=== PATIENT | female | born 1990 | race Caucasian/White ===

== ENCOUNTER 2022-02-11 13:24 | Inpatient (IN) | payer SELFPAY ==
[~2022-02-11] VITALS: Ht 144.8 cm; Wt 78.5 kg
[2022-02-11 13:26] VITALS: BP 120/95
[2022-02-11] MEDS ORDERED: ALBUTEROL 0.083% 2.5 MG/3 ML NEBU INH ONE ×2 (13:30→14:20)
[2022-02-11] MEDS ORDERED: ALBUTEROL SULFATE/IPRATROPIU 3 ML SOL IH ONE ×2 (13:30→14:20)
[2022-02-11] MEDS ORDERED: predniSONE 20 MG TAB PO ONE (13:30)
--- NOTE | 2022-02-11 13:30 | NUR ---
PATIENT BROUGHT IN BY STRETCHER BY [facility] DUE TO SHORTNES OF BREATH, PATIENT WAS GIVEN 2 NEBULIZER TREATMENTS
[2022-02-11] MEDS ORDERED: PRED20TA5 PO ×2 (13:47→13:48)
[2022-02-11] MEDS ORDERED: ALBU0.0912 INH ×2 (13:47→13:48)
[2022-02-11] MEDS ORDERED: MAG SULF 2000 MG/WATER PREMIX 50 ML IV ONE (15:50)
[2022-02-11 16:09] LABS: BASOPHILS # (AUTO) 0.1 K/uL (0.00-0.22); BASOPHILS % (AUTO) 0.4 % (0.0-2.0); EOSINOPHILS # (AUTO) 0.5 K/uL (0-0.4); EOSINOPHILS % (AUTO) 3.5 % (0.0-4.0); HEMATOCRIT 43.1 % (36-48); HEMOGLOBIN 14.4 g/dL (12.0-16.0); LYMPHOCYTES # (AUTO) 0.9 K/uL (2.5-16.5); LYMPHOCYTES % (AUTO) 5.6 % (20.5-51.1); MEAN CORPUSCULAR HEMOGLOBIN 30 pg (27-31); MEAN CORPUSCULAR HGB CONC 34 g/dL (33-37); MONOCYTES # (AUTO) 0.6 K/uL (0.8-1.0); MONOCYTES % (AUTO) 4.1 % (1.7-9.3); NEUTROPHILS # (AUTO) 13.6 K/uL (1.8-7.7); NEUTROPHILS % (AUTO) 86.4 % (42.2-75.2); PLATELET COUNT (AUTO) 311 K/uL (140-450); RED BLOOD CELL COUNT(AUTO) 4.85 MIL/uL (4.20-5.40); RED CELL DISTRIBUTION WIDTH 13.7 % (11.6-13.7); WHITE BLOOD COUNT (AUTO) 15.8 K/uL (4.8-10.8)
[2022-02-11] MEDS ORDERED: ALBUTEROL SULFATE/IPRATROPIU 3 ML SOL IH PRN (16:20)
[2022-02-11 16:27] LABS: ALBUMIN 3.6 g/dL (3.4-5.0); ANION GAP 15.6 (8-16); CARBON DIOXIDE 25.4 mmol/L (21-32); CREATININE 0.8 mg/dL (0.6-1.3); TOTAL BILIRUBIN 0.3 mg/dL (0.0-1.0)
[2022-02-11] MEDS ORDERED: POTASSIUM CHLORIDE 10 MEQ TABER PO ONE (16:40)
[2022-02-11] MEDS ORDERED: methylPREDNISolone SS 125 MG/2 ML VIAL IVP SCH ×2 (16:45)
--- NOTE | 2022-02-11 17:35 | NUR ---
PATIENT ON A GURNEY PUSH BY 2 RN FROM ER . PATIENT ALERT AND ORIENTED ABLE TO RESPONDS VERBALLY. KINDRA PALUMBO GAVE BED SIDE REPORT. PATIENT ABLE TO AMBULATE FROM GURNEY TO BED. NOTED WITH RAPID BREATH. AND WHEEZING. O2 SAT AT 88 AT ROOM AIR. 91- TO 94% AT 3L/MIN VIA NASAL CANULA. MAKE PATIENT SITUATED. AND ON TELE BOX. CALL LIGHT WITH IN EASY REACH.
[2022-02-11 18:09] VITALS: BP 118/76
[2022-02-11] MEDS ORDERED: ALBUTEROL SULFATE/IPRATROPIU 3 ML SOL IH SCH (19:00)
--- NOTE | 2022-02-11 19:02 | NUR ---
PATIENT ALERT HAVING BREATHING TREATMENT FROM RT. TOLERATED WELL.
--- NOTE | 2022-02-11 19:21 | NUR ---
PATIENT ALERT HAVING BREATHING TREATMENT. GAVE REPORT TO DOCUMENT MANAGEMENT SPECIALIST NURSE FOR CONTINUITY OF CARE.
--- NOTE | 2022-02-11 19:41 | NUR ---
patient very short of breath. needed 2 duoneb hhntxs. sats 89% on 3lnc. increased fio2 to 4lnc. small improvement post hhntx. rn is aware
--- NOTE | 2022-02-11 20:00 | NUR ---
PT REPORT RECEIVED FROM DAY SHIFT. CARE TAKEN OVER. UPON ASSESSMENT, PT SITTING UP IN BED WITH RESPIRATORY TX IN PROGRESS, TACHYPNEA RATE 28. PT WITH INSP AND EXP WHEEZING. DENIES PAIN. WILL CONTINUE TO MONITOR.
[2022-02-11 20:18] VITALS: BP 102/69
[2022-02-11] MEDS ORDERED: LEVALBUTEROL 1.25 MG/0.5 ML NEBU INH ONE ×2 (21:45→23:07)
--- NOTE | 2022-02-11 21:48 | NUR ---
DOCTOR CHANGED HHNTX MEDICATION TO XOPENEX 1.25MG Q6 AND PRN
[2022-02-11] MEDS ORDERED: BENZOCAINE/MENTHOL 1 LOZ MM PRN (21:50)
[2022-02-11] MEDS ORDERED: DOCUSATE SODIUM 100 MG GELCAP PO PRN (22:00)
[2022-02-11] MEDS ORDERED: ONDANSETRON 4 MG/2 ML VIAL IM/IVP PRN (22:00)
[2022-02-11] MEDS ORDERED: guaiFENesin DM 200/20 MG-10 ML 10 ML UDC PO PRN (22:00)
[2022-02-11] MEDS ORDERED: POTASSIUM CHLORIDE 10 MEQ TABER PO PRN (22:00)
[2022-02-11] MEDS ORDERED: HYDROcodone/APAP 7.5/325 MG 1 TAB PO PRN (22:00)
[2022-02-11] MEDS ORDERED: ACETAMINOPHEN 325 MG TAB PO PRN (22:00)
[2022-02-11] MEDS ORDERED: ZOLPIDEM 5 MG TAB PO PRN (22:00)
[2022-02-11] MEDS: LORATADINE 10 MG TAB PO SCH (22:22)
[2022-02-11] MEDS: FAMOTIDINE 20 MG TAB PO SCH (22:23)
[2022-02-11] MEDS: LORazepam 0.5 MG TAB PO PRN (22:23)
[2022-02-11 22:47] LABS: AMYLASE 64 U/L (25-115); CHOL/HDL RATIO 4.1 (1-4.5); FREE T4 (FREE THYROXINE) 1.14 ng/dL (0.76-1.46); HDL CHOLESTEROL 44 mg/dL (40-60); LDL (CALC) 126 mg/dL (60-100); LIPASE 68 U/L (73-393); MAGNESIUM 1.5 mg/dL (1.8-2.4); PHOSPHORUS 2.9 mg/dL (2.5-4.9); THYROID STIMULATING HORMONE 0.18 uIU/mL (0.34-3.74); TRIGLYCERIDES 57 mg/dL (30-150)
[2022-02-11] MEDS: NACL 0.9% 1,000 ML IV SCH (22:54)
[2022-02-11 23:11] LABS: PROTHROMBIN TIME 10.5 secs (10.8-13.4)
--- NOTE | 2022-02-12 | NUR ---
ROUNDING ON PT. IVF INITIATED AT 2300. VITALS STABLE AT THIS TIME, PT PULLED OUT IV. EXPLAINED TO PT NEED FOR IV FOR IVF AND MEDS. PT REFUSED TO HAVE IV ACCESS AT THIS TIME. STATED SHE WANTS TO SLEEP AND WILL LET IV ACCESS ATTEMPT LATER IN SHIFT. PT IS DRINKING H20, THUS FAR THIS SHIFT APPROX 1.5LITERS ICE WATER. AND IS GETTING UP TO RESTROOM TO VOID. REMAINS ON NASAL CANNULA AND SATURATION IS 99%. WILL CONTINUE TO MONITOR.
[2022-02-12 00:26] VITALS: BP 101/61
[2022-02-12] MEDS ORDERED: LEVALBUTEROL 1.25 MG/0.5 ML NEBU INH ONE ×4 (01:10→06:00)
[2022-02-12] MEDS ORDERED: LEVALBUTEROL 1.25 MG/0.5 ML NEBU INH PRN (01:15)
--- NOTE | 2022-02-12 02:00 | NUR ---
PT SLEEPING, NO APPARENT DISTRESS. O2 SAT 99%. WILL CONTINUE TO MONITOR.
[2022-02-12 04:00] VITALS: BP 123/71
[2022-02-12] MEDS: methylPREDNISolone SS 125 MG/2 ML VIAL IVP SCH ×2 (04:21)
--- NOTE | 2022-02-12 04:30 | NUR ---
pt awake. c/o SMITH 02/20. Tylenol given per MD order. New IV started to left FA 20G. Rt AC IV pt pulled out. IVF restarted and ivp solumedrol dose administered per order. Pt resp rate 26, labored, using accessory muscles. HR 129. Pt received resp tx, and encouraged to deep breathe during tx. Pt very agitated and crying during this time. Trouble sleeping. Sleep medication given per order. Pt now laying down with eyes closed. lights out. Will continue to monitor.
[2022-02-12] MEDS ORDERED: LEVALBUTEROL 1.25 MG/0.5 ML NEBU INH SCH (06:00)
[2022-02-12 06:21] LABS: APPEARANCE,URINE CLEAR (CLEAR); BILIRUBIN,URINE NEGATIVE (NEGATIVE); BLOOD, URINE NEGATIVE (NEGATIVE); COLOR,URINE YELLOW (YELLOW); LEUKOCYTE ESTERASE ,URINE NEGATIVE (NEGATIVE); NITRITE, URINE NEGATIVE (NEGATIVE); UGLUCOSE 2+ (NEGATIVE)
[2022-02-12 06:27] LABS: BASOPHILS % (AUTO) 0.1 % (0.0-2.0); EOSINOPHILS % (AUTO) 0.1 % (0.0-4.0); HEMOGLOBIN 13.7 g/dL (12.0-16.0); LYMPHOCYTES # (AUTO) 0.7 K/uL (2.5-16.5); LYMPHOCYTES % (AUTO) 7.4 % (20.5-51.1); MEAN CORPUSCULAR HEMOGLOBIN 30 pg (27-31); MEAN CORPUSCULAR HGB CONC 34 g/dL (33-37); MEAN CORPUSCULAR VOLUME 88.6 fL (80-94); MONOCYTES # (AUTO) 0.6 K/uL (0.8-1.0); MONOCYTES % (AUTO) 6.4 % (1.7-9.3); NEUTROPHILS # (AUTO) 8.2 K/uL (1.8-7.7); PLATELET COUNT (AUTO) 297 K/uL (140-450); RED BLOOD CELL COUNT(AUTO) 4.51 MIL/uL (4.20-5.40); RED CELL DISTRIBUTION WIDTH 13.3 % (11.6-13.7); WHITE BLOOD COUNT (AUTO) 9.6 K/uL (4.8-10.8)
--- NOTE | 2022-02-12 06:30 | NUR ---
pt sleeping. No distress. Call light within reach. Spo2 95%, HR 96. pt self turns. Will continue to monitor. Will endorse care to dayshift RN.
[2022-02-12 06:35] LABS: RBC,URINE NONE SEEN /HPF (0-5); WBC,URINE 0-5 /HPF (0-5)
[2022-02-12 06:36] LABS: BARBITURATE, URINE NEGATIVE ng/ml (NEG <=200); BENZODIAZEPINE, URINE NEGATIVE ng/mL (NEG <=200); CANNABINOID, URINE POSITIVE ng/mL (NEG <=50); COCAINE, URINE NEGATIVE ng/mL (NEG <=300); OPIATE, URINE NEGATIVE ng/mL (NEG <=2000); PHENCYCLIDINE SCREEN,URINE NEGATIVE ng/mL (NEG <=25)
[2022-02-12 06:52] LABS: ANION GAP 13.7 (8-16); CARBON DIOXIDE 26.3 mmol/L (21-32); CREATININE 0.6 mg/dL (0.6-1.3)
--- NOTE | 2022-02-12 07:14 | NUR ---
RESIDENT ASLEEP. RECEIVED REPORT FROM ACRYLIC FABRICATOR NURSE FOR CONTINUITY OF CARE.
[2022-02-12 08:00] VITALS: BP 127/90
[2022-02-12] MEDS: LORATADINE 10 MG TAB PO SCH (08:32)
[2022-02-12] MEDS: FAMOTIDINE 20 MG TAB PO SCH (08:33)
[2022-02-12] MEDS: PANTOPRAZOLE 40 MG TABEC PO SCH (08:33)
[2022-02-12] MEDS: guaiFENesin DM 200/20 MG-10 ML 10 ML UDC PO PRN ×2 (08:36→18:54)
--- NOTE | 2022-02-12 08:37 | NUR ---
GAVE ALL ORAL MEDICATION AND ROBITUSSIN FOR COMPLAIN OF COUGHING TOLERATED WELL.
[2022-02-12] MEDS: methylPREDNISolone SS 40 MG/ML VIAL IVP SCH ×2 (09:32→20:25)
--- NOTE | 2022-02-12 09:38 | NUR ---
PATIENT HAS BEEN SCREENED AND CATEGORIZED LOW NUTRITION RISK. PATIENT WILL BE SEEN WITHIN 7 DAYS OF ADMISSION. 02/18/[address]
[2022-02-12] MEDS: NACL 0.9% 1,000 ML IV SCH ×2 (10:51→23:00)
--- NOTE | 2022-02-12 11:30 | NUR ---
PATIENT AWAKE NO DISTRESS NOTED. IV INFUSING AT 80CC/HOUR TOLERATED WELL. ON O2 AT 3L/MIN VIA NASAL CANULA SATURATION AT 93 % STILL NOTED WITH WHEEZING.
[2022-02-12 12:00] VITALS: BP 112/66
[2022-02-12] MEDS: LEVALBUTEROL 1.25 MG/0.5 ML NEBU INH SCH ×2 (13:17→19:41)
--- NOTE | 2022-02-12 13:30 | NUR ---
PATIENT USE BED SIDE COMMODE NOTED WITH SCREAMING WHEN PATIENT CAN'T OPEN THE PACKET OF WIPES. ASSISTED TO OPEN IT. PATIENT GET EASILY AGITATED OR SCREAM WHEN FRUSTRATED.
--- NOTE | 2022-02-12 15:08 | NUR ---
PATIENT ON BED ASLEEP WITH CALL LIGHT WITH EASY REACH. O2 SAT AT 95% AT 3L/MIN. ALL SAFETY MEASURE IN PLACE.
[2022-02-12 16:00] VITALS: BP 107/72
--- NOTE | 2022-02-12 17:05 | NUR ---
Patient on bed resting no discomfort noted. On o2 at 3l/min via nasal canula. All safety measure in place. No abnormal behavior noted at this time.
--- NOTE | 2022-02-12 18:40 | NUR ---
PATIENT ALERT ORIENTED NO DISTRESS NOTED. EATING HER DINNER. CALL LIGHT WITH IN EASY REACH.
--- NOTE | 2022-02-12 18:55 | NUR ---
Patient coughing medicated as order.
--- NOTE | 2022-02-12 19:17 | NUR ---
PATIENT AWAKE ON STABLE CONDITION. GAVE REPORT TO RN SECURITY NURSE FOR CONTINUITY OF CARE.
[2022-02-12 20:00] VITALS: BP 105/71
--- NOTE | 2022-02-12 20:00 | NUR ---
GET REPORT FROM MORNING NURSE, PATIENT IS SITTING ON BED, VITAL SING IS WITHIN THE NORMAL RANGE, PATIENT IS STARED COUGHING, MEDICATION PROVIDED DR ORDER, PATIENT IS COMPLAINING CHEST TIGHTNESS , MEDICATED PATIENT , ALL OTHER DUE MEDS ARE GIVEN DR ORDER, CALL LIGHT WITHIN THE REACH , WILL CONTINUE TO MONITOR.
[2022-02-12] MEDS: LORazepam 0.5 MG TAB PO PRN (21:48)
[2022-02-13] VITALS: BP 99/66
--- NOTE | 2022-02-13 00:20 | NUR ---
PATIENT IS RESTING ON BED , NO ANY COMPLAIN OF PAIN OR SOB AT THIS TIME , VITALS ARE WITHIN THE NORMAL RANGE.CALL LIGHT IS WITHIN THE REACH WILL CONTINUE TO MONITOR.
[2022-02-13] MEDS: LEVALBUTEROL 1.25 MG/0.5 ML NEBU INH SCH ×3 (01:27→13:09)
--- NOTE | 2022-02-13 02:00 | NUR ---
PATIENT IS SITTING ON BED, PATIENT REQUESTED TO CHANGE HER, REQUEST FULFILL , VITALS ARE WITHIN THE NORMAL RANGE , RT GAVE RESPIRATORY TREATMENT DONE, CALL LIGHT WITHIN THE REACH , WILL CONTINUE TO MONITOR.
[2022-02-13 04:00] VITALS: BP 95/64
--- NOTE | 2022-02-13 04:00 | NUR ---
PATIENT IS LYING ON BED, NO ANY COMPLAIN OF PAIN OR SOB AT THIS TIME , ALL DUE MEDS ARE GIVEN DR ORDER, VITAL SIGN ARE WITHIN THE NORMAL RANGE, CALL LIGHT IS WITHIN THE REACH, WILL CONTINUE TO MONITOR.
--- NOTE | 2022-02-13 06:05 | NUR ---
PATIENT IS SITTING ON BED, NO ANY COMPLAIN OF PAIN OR SOB AT THIS TIME, CALL LIGHT IS WITHIN THE REACH ,WILL CONTINUE TO MONITOR.
[2022-02-13 06:27] LABS: BASOPHILS % (AUTO) 0.1 % (0.0-2.0); EOSINOPHILS % (AUTO) 0.1 % (0.0-4.0); HEMATOCRIT 39.5 % (36-48); LYMPHOCYTES # (AUTO) 1.8 K/uL (2.5-16.5); LYMPHOCYTES % (AUTO) 13.7 % (20.5-51.1); MEAN CORPUSCULAR HEMOGLOBIN 30 pg (27-31); MEAN CORPUSCULAR HGB CONC 33 g/dL (33-37); MEAN CORPUSCULAR VOLUME 89.8 fL (80-94); MONOCYTES % (AUTO) 7.6 % (1.7-9.3); NEUTROPHILS # (AUTO) 10.6 K/uL (1.8-7.7); NEUTROPHILS % (AUTO) 78.5 % (42.2-75.2); PLATELET COUNT (AUTO) 286 K/uL (140-450); RED BLOOD CELL COUNT(AUTO) 4.39 MIL/uL (4.20-5.40); RED CELL DISTRIBUTION WIDTH 13.6 % (11.6-13.7); WHITE BLOOD COUNT (AUTO) 13.5 K/uL (4.8-10.8)
[2022-02-13 07:07] LABS: ANION GAP 10.3 (8-16); CARBON DIOXIDE 28.1 mmol/L (21-32); CREATININE 0.5 mg/dL (0.6-1.3); POTASSIUM 4.4 mmol/L (3.5-5.1)
--- NOTE | 2022-02-13 07:10 | NUR ---
RECEIVED ENDORSEMENT FROM CAMP ADVISOR NURSE FOR CONTINUITY OF CARE. PT. AWAKE, LYING ON HER BED, A&OX4. PT IS AMBULATORY. ON 3L 02 NC. BREATHING UNLABORED. PT IS CONTINENT, WITH BEDSIDE COMMODE. SKIN IS INTACT. IV ON LEFT FA 20G, WITH NS AT 80. WILL CONTINUE TO MONITOR.
[2022-02-13 08:00] VITALS: BP 111/73
[2022-02-13 08:07] LABS: T4 (THYROXINE) 10.5 ug/dL (4.5-12.0)
[2022-02-13] MEDS: PANTOPRAZOLE 40 MG TABEC PO SCH (08:30)
[2022-02-13] MEDS: LORATADINE 10 MG TAB PO SCH (08:30)
[2022-02-13] MEDS: methylPREDNISolone SS 40 MG/ML VIAL IVP SCH (08:31)
[2022-02-13] MEDS: FAMOTIDINE 20 MG TAB PO SCH (08:31)
--- NOTE | 2022-02-13 08:40 | NUR ---
DUE MEDS GIVEN. PT 02SAT WAS 86% ON RA, PUT ON NC AT 2L O2. 02SAT WENT UP TO 95%. WILL CONTINUE TO MONITOR.
[2022-02-13] MEDS: NACL 0.9% 1,000 ML IV SCH (10:31)
--- NOTE | 2022-02-13 11:00 | NUR ---
PT LYING ON BED, DENIES PAIN, BREATHING UNLABORED. WILL CONTINUE TO MONITOR.
[2022-02-13 12:00] VITALS: BP 119/74
[2022-02-13] MEDS ORDERED: PRED20TA5 PO (12:13)
[2022-02-13] MEDS ORDERED: ALBU0.0912 INH (12:13)
[2022-02-13] MEDS ORDERED: LORA10TA19 PO (12:14)
[2022-02-13 14:18] VITALS: BP 119/74
--- NOTE | 2022-02-13 15:00 | NUR ---
WENT SARAH WITH THE DISCHARGE PAPERS WITH THE PT, AND PT VERBALIZED UNDERSTANDING. PT REMOVED HER IV LINE WITHOUT NOTIFYING RN, AND BLEEDING CONTROLLED. ID BAND REMOVED. PT CHANGED INTO OWN CLOTHING. ITEMS RETRIEVED FROM SECURITY AND GIVEN TO PT BY SECURITY. PT AMBULATED OUT OF HOSPITAL BY SELF TO FRONT LOBBY WHERE EX IS WAITING TO DRIVE HER HOME. VS STABLE. NO RESPIRATORY DISTRESS NOTED. PT IS STABLE. PT DISCHARGED.
--- NOTE | 2022-02-14 10:24 | NUR ---
LATE ENTRY- IV MAGNESIUM DISCONTINUED AT 1807
== END 2022-02-13 15:36 | disposition home or self-care (01) | DRG 871 ==
LOC: MED 13:24 → MTU 16:26
PROVIDERS: ADMIT Family Medicine; ATTEND Family Medicine
DX: A41.9 Sepsis, unspecified organism (principal); J96.00 Acute respiratory failure, unspecified whether with hypoxia or hypercapnia; J45.901 Unspecified asthma with (acute) exacerbation; E83.42 Hypomagnesemia; E87.6 Hypokalemia; F12.90 Cannabis use, unspecified, uncomplicated; Z20.822 Contact with and (suspected) exposure to COVID-19; F17.210 Nicotine dependence, cigarettes, uncomplicated; Z59.00 Homelessness unspecified; Z79.899 Other long term (current) drug therapy
CPT/HCPCS: 36415; 71045; 80048; 80053; 80305; 81001; 82150; 83036; 83690; 83735; 83880; 84100; 84436; 84439; 84443; 84479; 84484; 85025; 85610; 85730; 87081; 94640; 96365; 99291; J2920; J2930; J3475; J7512; J7612; J7613

== ENCOUNTER 2022-04-30 03:40 | Inpatient (IN) | payer MEDICAID, OTHER ==
[~2022-04-30] VITALS: Ht 162.6 cm; Wt 77.1 kg
[~2022-04-30 03:40] MED LIST: ALBU0.0912 INH; LORA10TA19 PO; PRED20TA5 PO
[2022-04-30 03:48] VITALS: BP 116/78
[2022-04-30] MEDS ORDERED: ALBUTEROL SULFATE/IPRATROPIU 3 ML SOL IH ONE (03:50)
[2022-04-30] MEDS ORDERED: LEVALBUTEROL 0.63 MG/3 ML NEBU INH ONE (03:55)
[2022-04-30] MEDS ORDERED: IPRATROPIUM 0.02% 0.5 MG/2.5 ML NEBU INH ONE (03:55)
[2022-04-30] MEDS ORDERED: methylPREDNISolone SS 125 MG in WATER STERILE 2 ML IV ONE (05:00)
--- NOTE | 2022-04-30 05:15 | NUR ---
COVID/CHRISTY AND BLOOD SPECIMENS COLLECTED AND WALKED TO LAB
--- NOTE | 2022-04-30 05:35 | NUR ---
31 Y/O FEMALE BIBA, C/O SOB. PT WAS RECENTLY DISCHARGED FROM [facility] WHERE SHE WAS ADMITTED FOR 4 DAYS FOR ASTHMA EXACERBATION. PT STATES SHE DOES NOT HAVE ACCESS TO HER MEDS ASTHMA MEDICATIONS. A/OX4, GCS-15; AMBULATORY; TACHYCARDIC AND TACHYPNIC WITH AUDIBLE WHEEZES, PRODUCTIVE COUGH. HX: ASTHMA NKA MED: SYMBICORT AND ALBUTEROL
[2022-04-30 05:36] LABS: ANION GAP 11.6 (8-16); CARBON DIOXIDE 27.7 mmol/L (21-32); CREATININE 0.7 mg/dL (0.6-1.3); POTASSIUM 3.3 mmol/L (3.5-5.1)
[2022-04-30] MEDS ORDERED: BUDE1AER IH (05:40)
[2022-04-30] MEDS ORDERED: ALBU0.0912 INH (05:40)
[2022-04-30 05:51] LABS: BASOPHILS # (AUTO) 0.1 K/uL (0.00-0.22); BASOPHILS % (AUTO) 0.4 % (0.0-2.0); EOSINOPHILS # (AUTO) 0.7 K/uL (0-0.4); EOSINOPHILS % (AUTO) 3.9 % (0.0-4.0); HEMATOCRIT 44.6 % (36-48); LYMPHOCYTES # (AUTO) 3.7 K/uL (2.5-16.5); MEAN CORPUSCULAR HEMOGLOBIN 29 pg (27-31); MEAN CORPUSCULAR HGB CONC 34 g/dL (33-37); MEAN CORPUSCULAR VOLUME 86.9 fL (80-94); MONOCYTES # (AUTO) 2.3 K/uL (0.8-1.0); MONOCYTES % (AUTO) 12.5 % (1.7-9.3); NEUTROPHILS # (AUTO) 11.8 K/uL (1.8-7.7); NEUTROPHILS % (AUTO) 63.2 % (42.2-75.2); PLATELET COUNT (AUTO) 352 K/uL (140-450); RED BLOOD CELL COUNT(AUTO) 5.13 MIL/uL (4.20-5.40); RED CELL DISTRIBUTION WIDTH 13.3 % (11.6-13.7); WHITE BLOOD COUNT (AUTO) 18.6 K/uL (4.8-10.8)
--- NOTE | 2022-04-30 06:00 | NUR ---
Ayanna dai in [facility] - 04/30/22 at 1841 by PHSEP PT PROVIDED WITH DINNER. PT AWAKE AND EATING IN BED
[2022-04-30] MEDS ORDERED: methylPREDNISolone SS 125 MG/2 ML VIAL ONE (06:23)
--- NOTE | 2022-04-30 06:45 | NUR ---
PATIENT HAS BEEN SCREENED AND CATEGORIZED LOW NUTRITION RISK. PATIENT WILL BE SEEN WITHIN 7 DAYS OF ADMISSION. 05/07/22 CHASE CHILDS MS, RDN
--- NOTE | 2022-04-30 07:17 | NUR ---
Pt report given to ALTON CHRISTENSEN. Transfer of care at this time.
--- NOTE | 2022-04-30 07:30 | NUR ---
RECEIVED PT IN [facility] AOX4. DENIES PAIN OR DISCOMFORT. NSR ON MONITOR. ON 2L NC SATURATION 95%. STATES OXYGEN HAS HELPED SOB. ADMITTED TO TELE. PENDING TELE BED. NAD. SAFETY MAINTAINED.
--- NOTE | 2022-04-30 07:30 | NUR ---
PT SATURATION IS 98% ON 2L NASAL CANNULA. YOU CAN HEAR HER WHEEZES UPON ENTERING HER ROOM. CHEST CONGESTION AND DRY COUGH. PT STATES ITS HARD TO COUGH ANYTHING OUT.
--- NOTE | 2022-04-30 09:30 | NUR ---
PT RESTING IN [place] DENIES SURESH NOR DISCOMFORT. NSR ON MONITOR. BREATHING UNLABORED. ON 3L NC SATURATION 97%. PENDING TELE BED.
[2022-04-30] MEDS ORDERED: ALBUTEROL SULFATE/IPRATROPIU 3 ML SOL IH PRN ×2 (10:00→10:10)
[2022-04-30] MEDS ORDERED: DOCUSATE SODIUM 100 MG GELCAP PO PRN (10:05)
[2022-04-30] MEDS ORDERED: HYDROcodone/APAP 7.5/325 MG 1 TAB PO PRN (10:05)
[2022-04-30] MEDS ORDERED: ONDANSETRON 4 MG/2 ML VIAL IM/IVP PRN (10:05)
[2022-04-30] MEDS: NACL 0.9% 1,000 ML IV SCH (10:05)
[2022-04-30] MEDS ORDERED: guaiFENesin DM 200/20 MG-10 ML 10 ML UDC PO PRN (10:05)
[2022-04-30] MEDS ORDERED: ACETAMINOPHEN 325 MG TAB PO PRN (10:05)
[2022-04-30] MEDS ORDERED: POTASSIUM CHLORIDE 10 MEQ TABER PO PRN (10:05)
[2022-04-30] MEDS ORDERED: ZOLPIDEM 5 MG TAB PO PRN (10:05)
[2022-04-30 11:21] LABS: PROTHROMBIN TIME 10.7 secs (10.8-13.4)
[2022-04-30 11:53] LABS: AMYLASE 71 U/L (25-115); HDL CHOLESTEROL 48 mg/dL (40-60); MAGNESIUM 2.2 mg/dL (1.8-2.4)
[2022-04-30] MEDS: ALBUTEROL SULFATE/IPRATROPIU 3 ML SOL IH SCH ×2 (12:41→19:24)
[2022-04-30] MEDS: methylPREDNISolone SS 40 MG/ML VIAL IVP SCH ×2 (13:18→21:23)
--- NOTE | 2022-04-30 13:20 | NUR ---
PT ASLEEP IN [facility] NO S/S PAIN OR DISCOMFORT. BREATHING UNLABORED. NAD. SAFETY MAINTAINED.
[2022-04-30 14:01] LABS: PHOSPHORUS 3.7 mg/dL (2.5-4.9)
--- NOTE | 2022-04-30 15:16 | NUR ---
Followed up with lab regarding pending results. CLS unavailable and will be consulted in regards to pending labs.
[2022-04-30 15:55] LABS: CHOL/HDL RATIO 3.7 (1-4.5); LDL (CALC) 111 mg/dL (60-100); LIPASE 91 U/L (73-393); THYROID STIMULATING HORMONE 0.39 uIU/mL (0.34-3.74); TRIGLYCERIDES 103 mg/dL (30-150)
--- NOTE | 2022-04-30 16:00 | NUR ---
Ayanna dai in [facility] - 04/30/22 at 1842 by PHSEP PT PROVIDED WITH DINNER. PT AWAKE AND EATING IN BED
--- NOTE | 2022-04-30 16:29 | NUR ---
TROPONIN NOT YET IN SYSTEM, CALLED AND SPOKE TO CLS. LAB HAS RESULTED AND WILL BE PLACED IN COMPUTER
--- NOTE | 2022-04-30 16:40 | NUR ---
PT PROVIDED WITH BED ZAMORANO.
--- NOTE | 2022-04-30 17:50 | NUR ---
PT PROVIDED WITH DINNER. PT AWAKE AND EATING IN BED
--- NOTE | 2022-04-30 19:20 | NUR ---
REPORT GIVEN TO LEONEL DANG. ALL QUESTIONS ANSWERED. TRANSFER OF CARE AT THIS TIME
--- NOTE | 2022-04-30 19:24 | NUR ---
PT IS AWAKE AND ALERT. PT GIVEN WATER PER REQUEST. ALL NEEDS MET AT THIS TIME. BED LOCKED IN LOWEST POSITION, SIDE RAILS X2 FOR SAFETY.
--- NOTE | 2022-04-30 19:24 | NUR ---
Note malaika in ED - 04/30/22 at 1926 by PHSEP PT IS AWAKE AND ALERT. PT GIVEN WATER PER REQUEST. ALL NEEDS MET AT THIS TIME. BED LOCKED IN LOWEST POSITION, SIDE RAILS X2 FOR SAFETY.
--- NOTE | 2022-04-30 19:57 | NUR ---
Patient will be admitted to care of FA[facility]O. Admited to TELE. Will go to [id number]. Belongings list completed. Report to ALTON PORTILLO.
--- NOTE | 2022-04-30 20:00 | NUR ---
RECEIVED PT FROM ER NURSE,ALERT ORIENTED X4,ON 2 L NC. NO DISTRESS NOTED
--- NOTE | 2022-04-30 21:30 | NUR ---
SCHEDULED MEDS GIVEN,NO ADVERSE REACTIONS NOTED
--- NOTE | 2022-05-01 01:00 | NUR ---
PATIENT ASLEEP, BREATHING EVEN AND UNLABORED,NO DISTRESS NOTED
[2022-05-01] MEDS: NACL 0.9% 1,000 ML IV SCH (02:44)
[2022-05-01 04:00] VITALS: BP 140/81
--- NOTE | 2022-05-01 04:00 | NUR ---
PATIENT ASLEEP,BREATHING EVEN AND UNLABORED,NO COUGH OR SOB NOTED
[2022-05-01] MEDS: methylPREDNISolone SS 40 MG/ML VIAL IVP SCH ×2 (05:08→13:12)
--- NOTE | 2022-05-01 06:00 | NUR ---
PATIENT ASLEEP,BREATHING EVEN AND UNLABORED,NO DISTRESS NOTED
[2022-05-01 06:30] LABS: BASOPHILS % (AUTO) 0.1 % (0.0-2.0); EOSINOPHILS % (AUTO) 0.4 % (0.0-4.0); HEMOGLOBIN 14.1 g/dL (12.0-16.0); LYMPHOCYTES # (AUTO) 2.1 K/uL (2.5-16.5); MEAN CORPUSCULAR HEMOGLOBIN 29 pg (27-31); MEAN CORPUSCULAR HGB CONC 34 g/dL (33-37); MEAN CORPUSCULAR VOLUME 87.7 fL (80-94); MONOCYTES # (AUTO) 0.9 K/uL (0.8-1.0); MONOCYTES % (AUTO) 9.3 % (1.7-9.3); NEUTROPHILS # (AUTO) 6.5 K/uL (1.8-7.7); NEUTROPHILS % (AUTO) 68.2 % (42.2-75.2); PLATELET COUNT (AUTO) 324 K/uL (140-450); RED BLOOD CELL COUNT(AUTO) 4.78 MIL/uL (4.20-5.40); RED CELL DISTRIBUTION WIDTH 13.1 % (11.6-13.7); WHITE BLOOD COUNT (AUTO) 9.6 K/uL (4.8-10.8)
[2022-05-01 06:34] LABS: ANION GAP 10.5 (8-16); CARBON DIOXIDE 29.7 mmol/L (21-32); CREATININE 0.6 mg/dL (0.6-1.3); POTASSIUM 4.2 mmol/L (3.5-5.1)
[2022-05-01 07:06] LABS: T4 (THYROXINE) 8.7 ug/dL (4.5-12.0)
--- NOTE | 2022-05-01 07:30 | NUR ---
endorsed pt to am nurse for continuity of care. pt is stable
[2022-05-01] MEDS: ALBUTEROL SULFATE/IPRATROPIU 3 ML SOL IH SCH (07:39)
[2022-05-01 08:00] VITALS: BP 112/74
--- NOTE | 2022-05-01 08:49 | NUR ---
RECEIVE ENDORSEMENT FROM PM SHIFT WHILE PATIENT REST IN BED WITH PIV LAC 20G PATENT, NS INFUSING AT 60ML/HR. WILL CONTINUE TO MONITOR.
[2022-05-01] MEDS ORDERED: PANTOPRAZOLE 40 MG TABEC PO SCH (09:00)
[2022-05-01 11:10] LABS: APPEARANCE,URINE HAZY (CLEAR); BILIRUBIN,URINE NEGATIVE (NEGATIVE); BLOOD, URINE TRACE-I (NEGATIVE); COLOR,URINE YELLOW (YELLOW); LEUKOCYTE ESTERASE ,URINE NEGATIVE (NEGATIVE); NITRITE, URINE NEGATIVE (NEGATIVE); UGLUCOSE NEGATIVE (NEGATIVE)
[2022-05-01 11:21] LABS: BARBITURATE, URINE NEGATIVE ng/ml (NEG <=200); BENZODIAZEPINE, URINE NEGATIVE ng/mL (NEG <=200); COCAINE, URINE NEGATIVE ng/mL (NEG <=300); OPIATE, URINE NEGATIVE ng/mL (NEG <=2000); PHENCYCLIDINE SCREEN,URINE NEGATIVE ng/mL (NEG <=25)
[2022-05-01 11:23] LABS: CANNABINOID, URINE POSITIVE ng/mL (NEG <=50)
[2022-05-01 11:26] LABS: RBC,URINE 0-5 /HPF (0-5); WBC,URINE 0-5 /HPF (0-5)
[2022-05-01 12:00] VITALS: BP 116/77
--- NOTE | 2022-05-01 12:50 | NUR ---
PATIENT REMOVE HER TEL. MONITOR, DISCONNECT HER IV AND SEATING ON THE BED, WAITING TO GO HOME. PER PATIENT THAT DOCTOR DISCHARGE HER, AND SHE NEED "NOTHING" BUT JUST GO HOME.
--- NOTE | 2022-05-01 13:30 | NUR ---
DISCHARGE PATIENT W/ STABLE CONDITION, D/C CONSENT SIGNED, IV ACCESS AND ARM BAND REMOVE BEFORE PATIENT WALK OUT THE FACILITY W/ SIGNIFICANT OTHER. Addendum: 05/01/22 at 1448 by Trudy Ritchie RN DISCHARGE PATIENT W/ STABLE CONDITION, D/C CONSENT SIGNED, IV ACCESS AND ARM BAND REMOVE BEFORE PATIENT WALK OUT THE FACILITY. HOMELESS HELP PACKAGE AND SANDWICH GIVEN PRE DISCHARGE.
== END 2022-05-01 14:35 | disposition home or self-care (01) | DRG 133 ==
LOC: MED 03:40 → MTU 05:47
DX: J96.00 Acute respiratory failure, unspecified whether with hypoxia or hypercapnia (principal); J45.901 Unspecified asthma with (acute) exacerbation; E87.6 Hypokalemia; Z20.822 Contact with and (suspected) exposure to COVID-19; D72.829 Elevated white blood cell count, unspecified; T38.0X5A Adverse effect of glucocorticoids and synthetic analogues, initial encounter; Z91.14 Patient's other noncompliance with medication regimen; Y92.89 Other specified places as the place of occurrence of the external cause
CPT/HCPCS: 36415; 71045; 80048; 80305; 81001; 82150; 83036; 83690; 83735; 83880; 84100; 84436; 84439; 84443; 84479; 84484; 85025; 85610; 85730; 87081; 94640; 96374; 99291; J2920; J2930; J7614; J7644; Q0092

== ENCOUNTER 2023-05-18 21:46 | Emergency (ER) | payer MEDICAID ==
[~2023-05-18] VITALS: Ht 149.9 cm; Wt 79.8 kg
[~2023-05-18 21:46] MED LIST changes: +BUDE1AER IH; -LORA10TA19 PO; +PHENYLEPHRINE TP; +SHARK OIL TP
--- NOTE | 2023-05-18 21:47 | NUR ---
[employer] [place] FOR PRE-BOOK MEDICAL CLEARANCE, TAKEN TO [facility]
[2023-05-18 21:48] VITALS: BP 93/67; PULSE 101; RESP 16; TEMP 98.2; O2SAT 98
--- NOTE | 2023-05-18 22:37 | NUR ---
Patient being evaluated by physician at [facility]
[2023-05-18 22:51] VITALS: BP 93/67; PULSE 101; RESP 16; TEMP 98.2; O2SAT 98
--- NOTE | 2023-05-18 22:51 | NUR ---
Patient discharged with v/s stable. Written and verbal after care instructions given and explained. Patient verbalized understanding. Police with in custody. All questions addressed prior to discharge. Advised to follow up with PMD.
== END 2023-05-18 22:51 ==
LOC: MED 21:46
DX: S41.101A Unspecified open wound of right upper arm, initial encounter (principal); J45.909 Unspecified asthma, uncomplicated; Z79.899 Other long term (current) drug therapy; Z02.89 Encounter for other administrative examinations; X58.XXXA Exposure to other specified factors, initial encounter; Y93.89 Activity, other specified; Y92.89 Other specified places as the place of occurrence of the external cause; Y99.8 Other external cause status
CPT/HCPCS: 99283

== ENCOUNTER 2024-08-27 14:38 | Inpatient (IN) | payer MEDICAID, OTHER ==
[2024-08-27] VITALS (8 sets, daily range): BP systolic 142; BP diastolic 91; PULSE 101–131; RESP 17–25; TEMP 97.2; O2SAT 88–97
[~2024-08-27] VITALS: Ht 144.8 cm; Wt 73.9 kg
[2024-08-27] MEDS ORDERED: ALBUTEROL 0.083% 2.5 MG/3 ML NEBU INH ONE (15:04)
[2024-08-27] MEDS ORDERED: IPRATROPIUM 0.02% 0.5 MG/2.5 ML NEBU INH ONE (15:05)
[2024-08-27] MEDS: IPRATROPIUM 0.02% 0.5 MG/2.5 ML NEBU INH ONE ×3 (15:28→16:15)
[2024-08-27] MEDS: ALBUTEROL 0.083% 2.5 MG/3 ML NEBU INH ONE ×3 (15:29→16:15)
[2024-08-27] MEDS: DEXAMETHASONE 10 MG/ML VIAL PO ONE (15:48)
[2024-08-27] MEDS: MAG SULF 2000 MG/WATER PREMIX 50 ML IV ONE (17:02)
[2024-08-27 17:07] LABS: BASOPHILS # (AUTO) 0.2 K/uL (0.00-0.22); BASOPHILS % (AUTO) 1.5 % (0.0-2.0); EOSINOPHILS # (AUTO) 0.3 K/uL (0-0.4); EOSINOPHILS % (AUTO) 2.2 % (0.0-4.0); HEMATOCRIT 46.5 % (36-48); HEMOGLOBIN 15.6 g/dL (12.0-16.0); LYMPHOCYTES # (AUTO) 2.1 K/uL (2.5-16.5); LYMPHOCYTES % (AUTO) 16.4 % (20.5-51.1); MEAN CORPUSCULAR HEMOGLOBIN 30 pg (27-31); MEAN CORPUSCULAR HGB CONC 34 g/dL (33-37); MEAN CORPUSCULAR VOLUME 90.2 fL (80-94); MONOCYTES # (AUTO) 1.2 K/uL (0.8-1.0); MONOCYTES % (AUTO) 9.3 % (1.7-9.3); NEUTROPHILS % (AUTO) 70.6 % (42.2-75.2); PLATELET COUNT (AUTO) 324 K/uL (140-450); RED BLOOD CELL COUNT(AUTO) 5.15 MIL/uL (4.20-5.40); WHITE BLOOD COUNT (AUTO) 12.8 K/uL (4.8-10.8)
[2024-08-27 17:15] LABS: ANION GAP 16.6 (8-16); CALCIUM 9.6 mg/dL (8.5-10.1); CARBON DIOXIDE 24.5 mmol/L (21-32); CREATININE 0.9 mg/dL (0.6-1.3); POTASSIUM 3.1 mmol/L (3.5-5.1)
[2024-08-27] MEDS: POTASSIUM CHLORIDE 20% 40 MEQ/15 ML UDC PO ONE (17:41)
[2024-08-27] MEDS: ONDANSETRON 4 MG/2 ML VIAL IVP ONE (17:55)
[2024-08-27] MEDS ORDERED: IBUPROFEN 400 MG TAB PO PRN (18:50)
[2024-08-27 18:53] LABS: FLU A ANTIGEN negative (NEGATIVE); FLU B ANTIGEN NEGATIVE (NEGATIVE)
[2024-08-27] MEDS ORDERED: MAGNESIUM OXIDE 400 MG TAB PO PRN (19:00)
[2024-08-27] MEDS ORDERED: POTASSIUM CHLORIDE 10 MEQ TABER PO PRN (19:00)
[2024-08-27 19:37] LABS: LACTIC ACID 2.1 mmol/L (0.4-2.0)
[2024-08-27] MEDS: ALBUTEROL SULFATE/IPRATROPIU 3 ML SOL IH SCH (20:14)
[2024-08-27] MEDS: BUDESONIDE 0.5 MG/2 ML NEBU INH SCH (20:14)
[2024-08-27] MEDS: methylPREDNISolone SS 40 MG/ML VIAL IVP SCH (21:36)
[2024-08-27] MEDS: NACL 0.9% 500 ML IV ONE (22:10)
[2024-08-28] VITALS (12 sets, daily range): BP systolic 105–137; BP diastolic 70–87; PULSE 71–108; RESP 18–24; TEMP 96.6–97.6; O2SAT 91–100
[2024-08-28 06:55] LABS: BASOPHILS % (AUTO) 0.3 % (0.0-2.0); HEMATOCRIT 42.9 % (36-48); HEMOGLOBIN 14.4 g/dL (12.0-16.0); LYMPHOCYTES % (AUTO) 14.9 % (20.5-51.1); MEAN CORPUSCULAR HEMOGLOBIN 30 pg (27-31); MEAN CORPUSCULAR HGB CONC 34 g/dL (33-37); MEAN CORPUSCULAR VOLUME 89.9 fL (80-94); MONOCYTES # (AUTO) 0.4 K/uL (0.8-1.0); MONOCYTES % (AUTO) 6.6 % (1.7-9.3); NEUTROPHILS # (AUTO) 5.3 K/uL (1.8-7.7); NEUTROPHILS % (AUTO) 78.2 % (42.2-75.2); PLATELET COUNT (AUTO) 342 K/uL (140-450); RED BLOOD CELL COUNT(AUTO) 4.77 MIL/uL (4.20-5.40); RED CELL DISTRIBUTION WIDTH 12.9 % (11.6-13.7); WHITE BLOOD COUNT (AUTO) 6.7 K/uL (4.8-10.8)
[2024-08-28 07:18] LABS: ALBUMIN 3.5 g/dL (3.4-5.0); CALCIUM 8.8 mg/dL (8.5-10.1); CARBON DIOXIDE 25.5 mmol/L (21-32); CREATININE 0.6 mg/dL (0.6-1.3); MAGNESIUM 2.1 mg/dL (1.8-2.4); PHOSPHORUS 3.6 mg/dL (2.5-4.9); POTASSIUM 4.5 mmol/L (3.5-5.1); TOTAL BILIRUBIN 0.4 mg/dL (0.0-1.0); TOTAL PROTEIN, SERUM 8.1 g/dL (6.4-8.2)
[2024-08-28] MEDS: PANTOPRAZOLE 40 MG TABEC PO SCH (08:35)
[2024-08-28 09:44] LABS: LACTIC ACID 1.3 mmol/L (0.4-2.0)
[2024-08-28] MEDS: AZITHROMYCIN 500 MG in DEXTROSE 5% 250 ML IV SCH (12:36)
[2024-08-28] MEDS: ACETAMINOPHEN 325 MG TAB PO PRN (14:35)
[2024-08-28] MEDS: BUDESONIDE 0.5 MG/2 ML NEBU INH SCH (19:47)
[2024-08-29] VITALS (12 sets, daily range): BP systolic 102–153; BP diastolic 64–92; PULSE 65–144; RESP 17–20; TEMP 96.8–98.1; O2SAT 92–98
[2024-08-29 06:43] LABS: BASOPHILS % (AUTO) 0.1 % (0.0-2.0); HEMATOCRIT 41.7 % (36-48); HEMOGLOBIN 13.9 g/dL (12.0-16.0); LYMPHOCYTES # (AUTO) 1.9 K/uL (2.5-16.5); MEAN CORPUSCULAR HEMOGLOBIN 30 pg (27-31); MEAN CORPUSCULAR HGB CONC 33 g/dL (33-37); MEAN CORPUSCULAR VOLUME 89.8 fL (80-94); MONOCYTES # (AUTO) 1.2 K/uL (0.8-1.0); MONOCYTES % (AUTO) 10.1 % (1.7-9.3); NEUTROPHILS # (AUTO) 8.8 K/uL (1.8-7.7); NEUTROPHILS % (AUTO) 73.8 % (42.2-75.2); PLATELET COUNT (AUTO) 325 K/uL (140-450); RED BLOOD CELL COUNT(AUTO) 4.65 MIL/uL (4.20-5.40); RED CELL DISTRIBUTION WIDTH 13.3 % (11.6-13.7)
[2024-08-29 07:17] LABS: ALBUMIN 3.4 g/dL (3.4-5.0); ANION GAP 10.9 (8-16); CARBON DIOXIDE 29.2 mmol/L (21-32); CREATININE 0.6 mg/dL (0.6-1.3); PHOSPHORUS 3.9 mg/dL (2.5-4.9); POTASSIUM 4.1 mmol/L (3.5-5.1); TOTAL BILIRUBIN 0.3 mg/dL (0.0-1.0); TOTAL PROTEIN, SERUM 7.7 g/dL (6.4-8.2)
[2024-08-29] MEDS ORDERED: BUDE1AER2 IH (10:42)
[2024-08-29] MEDS ORDERED: METH4TAB1 PO (10:44)
[2024-08-29] MEDS ORDERED: AZIT250T4 PO (10:44)
[2024-08-30] VITALS (9 sets, daily range): BP systolic 110–126; BP diastolic 69–88; PULSE 71–94; RESP 16–20; TEMP 97.3–97.6; O2SAT 94–100
[2024-08-30] MEDS: ALBUTEROL SULFATE/IPRATROPIU 3 ML SOL IH PRN (05:50)
[2024-08-30 06:48] LABS: BASOPHILS % (AUTO) 0.3 % (0.0-2.0); EOSINOPHILS % (AUTO) 0.1 % (0.0-4.0); HEMATOCRIT 43.9 % (36-48); HEMOGLOBIN 14.6 g/dL (12.0-16.0); LYMPHOCYTES # (AUTO) 1.5 K/uL (2.5-16.5); LYMPHOCYTES % (AUTO) 18.1 % (20.5-51.1); MEAN CORPUSCULAR HEMOGLOBIN 30 pg (27-31); MEAN CORPUSCULAR HGB CONC 33 g/dL (33-37); MEAN CORPUSCULAR VOLUME 90.5 fL (80-94); MONOCYTES # (AUTO) 0.8 K/uL (0.8-1.0); MONOCYTES % (AUTO) 10.1 % (1.7-9.3); NEUTROPHILS # (AUTO) 5.9 K/uL (1.8-7.7); NEUTROPHILS % (AUTO) 71.4 % (42.2-75.2); PLATELET COUNT (AUTO) 302 K/uL (140-450); RED BLOOD CELL COUNT(AUTO) 4.85 MIL/uL (4.20-5.40); RED CELL DISTRIBUTION WIDTH 12.9 % (11.6-13.7); WHITE BLOOD COUNT (AUTO) 8.3 K/uL (4.8-10.8)
[2024-08-30 07:23] LABS: ALBUMIN 3.5 g/dL (3.4-5.0); CALCIUM 9.3 mg/dL (8.5-10.1); CARBON DIOXIDE 31.3 mmol/L (21-32); CREATININE 0.6 mg/dL (0.6-1.3); MAGNESIUM 2.2 mg/dL (1.8-2.4); PHOSPHORUS 4.4 mg/dL (2.5-4.9); POTASSIUM 4.3 mmol/L (3.5-5.1); TOTAL BILIRUBIN 0.3 mg/dL (0.0-1.0); TOTAL PROTEIN, SERUM 7.7 g/dL (6.4-8.2)
== END 2024-08-30 15:00 | disposition home or self-care (01) | DRG 141 ==
LOC: MED 14:38 → MTU 18:48
PROVIDERS: ADMIT Student in an Organized Health Care Education/Training Program; ATTEND Student in an Organized Health Care Education/Training Program
DX: J45.901 Unspecified asthma with (acute) exacerbation (principal); J96.01 Acute respiratory failure with hypoxia; R65.11 Systemic inflammatory response syndrome (SIRS) of non-infectious origin with acute organ dysfunction; E87.20 Acidosis, unspecified; E87.1 Hypo-osmolality and hyponatremia; Z20.822 Contact with and (suspected) exposure to COVID-19; E87.6 Hypokalemia; Z87.891 Personal history of nicotine dependence; Z59.00 Homelessness unspecified; Z79.899 Other long term (current) drug therapy; Z88.8 Allergy status to other drugs, medicaments and biological substances
CPT/HCPCS: 36415; 71045; 80048; 80053; 83605; 83735; 84100; 85025; 87040; 87081; 94640; 94761; 96365; 96375; 99291; J0456; J1100; J2405; J2920; J3475; J7060; J7613; J7626; J7644